=== PATIENT | male | born 2005 | race Two or more races ===

== ENCOUNTER 2024-06-25 17:32 | Emergency (ER) | payer MEDICAID, SELFPAY ==
[2024-06-25 18:08] VITALS: BP 115/67; PULSE 80; RESP 18; TEMP 36.9; O2SAT 99; BMI 22.8
--- NOTE | 2024-06-25 18:12 | PD.EDRME ---
Rapid Medical Screening Exam [facility] Arrival date/time: 06/25/24 17:32 18 yo m present to ED for c/o of fever, cough for 3 days I have greeted and performed a focused initial assessment of this patient. A comprehensive ED assessment and evaluation of the patient, analysis of all test results, and completion of the medical decision making process will be conducted by additional ED providers. Chief Complaint: Flu Like Symptoms Vital signs: Vital Signs Temperature 98.5 F 06/25/24 18:08 Pulse Rate 80 06/25/24 18:08 Respiratory Rate 18 06/25/24 18:08 Blood Pressure 115/67 06/25/24 18:08 Pulse Oximetry (%) 99 06/25/24 18:08 Oxygen Delivery Method Room Air 06/25/24 18:08
--- NOTE | 2024-06-25 18:15 | XR_ITS ---
Examination: PA lateral chest 2 views Technique: Upright PA lateral chest 2 views Indications: Coughing beginning 3 days ago. Findings: Normal heart size No lobar pneumonia. Recommend AP lordotic chest follow-up to exclude parenchymal disease in the right upper lobe medially Left lung clear Impression: Recommend AP lordotic chest follow-up to exclude parenchymal disease in the right upper lobe
[2024-06-25 20:07] LABS: Strep A Rapid Negative (Negative)
--- NOTE | 2024-06-25 21:49 | EDNOTE_ITS ---
Upper Respiratory Inf. RME/HPI General Chief Complaint: Flu Like Symptoms Stated Complaint: COUGH, CHEST PAIN, SORE THROAT, BODY ACHES Time Seen by Provider: 06/25/24 21:29 Arrival date/time: 06/25/24 17:32 RME / HPI RME / HPI Narrative: 18-year-old male patient with no significant past medical history, came in for evaluation regarding fever and cough and congestion for the last 3 days, severity of symptoms moderate. Also complained of chest pain and coughing. Denies any ill contacts denies any other complaints no medications taken prior to arrival Related Data Previous Rx's ?Medication ?Instructions ?Recorded diphenhydramine HCl 25 mg capsule 25 mg PO TID PRN allergic reaction 01/27/24 (Benadryl) #20 caps methylprednisolone 4 mg tablets in 4 mg PO .as directed #21 tabs 01/27/24 a dose pack (Medrol (Real)) ibuprofen 800 mg tablet 800 mg PO TID PRN pain #20 tabs 06/25/24 oseltamivir 75 mg capsule (Tamiflu) 75 mg PO BID 5 days #10 caps 06/25/24 Allergies Allergy/AdvReac Type Severity Reaction Status Date / Time bee venom protein (honey bee) Allergy Verified 06/25/24 17:34 Review of Systems Review of Systems Narrative Review of Systems: Review of system reviewed and within normal limits except mentioned in HPI ED Exam Narrative Physical exam: VITAL SIGNS: Reviewed. GENERAL APPEARANCE: Alert and interactive, follows commands, no acute distress, HEAD AND FACE: Non-traumatic. ENT: PERRL, pink conjunctivitis, eyelid no trauma, Mucous membrane moist. NECK: Supple, nontender, no nuchal rigidity. CHEST: No tenderness, no crepitus, no paradoxical movement, no retractions. LUNGS: Clear, well ventilated, symmetric, no rales, no wheezing, no ronchi, no stridor, good breath sounds bilaterally. HEART: Regular rate, regular rhythm, no murmur, no gallops. ABDOMEN: Soft, positive bowel sounds, nondistended, no guarding, nontender, no rebound, no masses, RECTAL: Deferred. GENITAL: Deferred. NEUROLOGICAL: Gross motor function intact sensory function intact, Appropriate for age. MUSCULOSKELETAL: low back nontender, full range of motion. EXTREMITIES: Nontender, full range of motion. SKIN: Color pink, dry, no rash, no lacerations, no abrasions, no contusions. LYMPHATICS: Deferred. Course Quality Measures none Orders Category Date Time Status Bedside Influenza A&B Antigen Test NOW Care 06/25/24 18:13 Completed XR chest 2V Stat Exams 06/25/24 18:15 Completed Strep A Rapid Stat Lab 06/25/24 18:54 Completed Vital Signs Vital signs: Vital Signs Temperature 98.5 F 06/25/24 18:08 Pulse Rate 80 06/25/24 18:08 Respiratory Rate 18 06/25/24 18:08 Blood Pressure 115/67 06/25/24 18:08 Pulse Oximetry (%) 99 06/25/24 18:08 Oxygen Delivery Method Room Air 06/25/24 18:08 Upper Respiratory Infection MDM Narrative MDM Narrative:: 18-year-old male patient with no significant past medical history, came in for evaluation regarding fever and cough and congestion for the last 3 days, severity of symptoms moderate. Also complained of chest pain and coughing. De nies any ill contacts denies any other complaints no medications taken prior to arrival Patient tested positive for influenza A and the rest of the labs unremarkable chest x-ray came back unremarkable. Patient appears nontoxic and hemodynamically stable. Patient discharged home and instructed to follow-up with primary care provider in 24 to 48 hours. Instructed to return to the emergency department immediately if worsening of symptoms Patient data External records reviewed:: None Clinical information provided by:: patient Social determinants that could affect healthcare access:: none Patient has the following chronic illnesses:: None How is presenting disease/condition affected by chronic disease/condition?: no chronic disease Evaluation data The following diagnostics were reviewed and interpreted by me:: lab results and radiology exam(s) Lab and/or radiology exams considered but not ordered:: None Interpretation Summary: I personally reviewed and interpreted the x-ray of this patient. There is no acute abnormalities found, no infiltrates no pneumothorax no hemothorax normal chest x-ray. Review of other structures was without significant abnormal findings also. I additionally reviewed the radiologist report and agree with the interpretation. Patient tested positive for influenza negative for strep Medications / Prescriptions Medications or Prescriptions considered but not ordered:: None Medication administrations:: None Consultations Consultation(s) initiated? (list below): No Diagnosis Upper Respiratory Differential Diagnosis: upper respiratory infection, viral infection and influenza Most likely diagnosis given after review of the tests above:: Influenza Admission Indicated Admission indicated?: not indicated Admission Request Was there a request for admission?: No Disposition Plan Disposition Plan: Discharge Discharge Attestation Discharge Attestation: The patient was given an opportunity to ask questions and understood the discharge instructions. Discharge instructions specifically effects, indications for sooner follow up or return to the emergency department, and the expected course of current diagnosis. Patient condition: Stable Discharge Plan Plan Patient Disposition: HOME (Self Care) Disposition Comment: Stable Prescriptions/Referrals Prescriptions/Med Rec: New oseltamivir [Tamiflu] 75 mg capsule 75 mg PO BID 5 Days Qty: 10 0RF ibuprofen 800 mg tablet 800 mg PO TID PRN (Reason: pain) Qty: 20 0RF No Action methylprednisolone [Medrol (Real)] 4 mg tablets,dose pack 4 mg PO .as directed Qty: 21 0RF diphenhydramine HCl [Benadryl] 25 mg capsule 25 mg PO TID PRN (Reason: allergic reaction) Qty: 20 0RF Referrals: No Primary/Family,Physician [Primary Care Provider] - In 1 week Problem List Clinical Impression: Influenza Patient/Caregiver Discharge Instructions Discharge Activity: activity as tolerated Education Materials: ED Influenza (Adult) Additional Instructions: Thank you for the opportunity for serving you today. You are stable for discharged . You are advised to: Follow-up with your PCP in 1 to 2 days Return to ED for worsening of symptoms Increase oral fluids Take medication as prescribed Print Language: Greenlandic Stand Alone Forms: Lizbeth Award Info., Patient Portal Info Letter LONDON/ROCÍO Supervising Physician LONDON/ROCÍO Supervising Physician: MD Argenis
[2024-06-25 21:53] VITALS: RESP 18
== END 2024-06-25 21:54 | disposition home or self-care (01) ==
PROVIDERS: Physician Assistant; Emergency Provider Emergency Medicine
DX: J10.1 Influenza due to other identified influenza virus with other respiratory manifestations (principal)
CPT/HCPCS: 71046; 87400; 87634; 87651; 99283